=== PATIENT | male | born 1985 | race Caucasian/White ===

== ENCOUNTER → 2021-08-10 | Outpatient (CLI) | payer OTHER ==
[2021-08-10 09:43] LABS: BASO # 0.03 (0.02-0.10); EOS # 0.42 (0.04-0.40); EOS % 5.7 % (0.0-4.0); HEMATOCRIT 47.1 % (42.0-52.0); HEMOGLOBIN 15.8 g/dL (13.5-18.0); LYMPH# 2.48 (1.50-4.00); MEAN CELL VOLUME 93 fl (78-100); MEAN CORPUSCULAR HEMOGLOBIN 31 pg (27-31); MEAN CORPUSCULAR HGB CONC 34 g/dL (33-37); MEAN PLATELET VOLUME 9.4 fl (7.4-10.4); MONO # 0.69 (0.20-0.80); NEU # 3.73 (1.40-6.50); PLATELET COUNT 239 K/mm3 (130-400); RED BLOOD COUNT 5.06 M/mm3 (4.20-5.60); RED CELL DISTRIBUTION WIDTH 11.8 % (11.5-14.5); WHITE BLOOD COUNT 7.4 K/mm3 (4.8-10.8)
[2021-08-10 09:59] LABS: ALBUMIN 4.3 g/dL (3.5-5.0); POTASSIUM 4.9 mmol/L (3.5-5.1); SODIUM 139 mmol/L (136-145)
[2021-08-10 10:00] LABS: CALCIUM 9.4 mg/dL (8.3-10.5)
[2021-08-10 10:02] LABS: GLUCOSE 102 mg/dL (75-110); TOTAL PROTEIN 7.4 g/dL (6.4-8.3)
[2021-08-10 10:03] LABS: CARBON DIOXIDE 24 mmol/L (22-29)
[2021-08-10 10:04] LABS: TOTAL BILIRUBIN 0.6 mg/dL (0.2-1.2)
[2021-08-10 10:07] LABS: AST-SGOT 26 U/L (5-34)
[2021-08-10 10:08] LABS: ALT/SGPT 39 U/L (0-55)
== END ==
LOC: LAB 09:12
PROVIDERS: Family Medicine
DX: Z00.00 Encounter for general adult medical examination without abnormal findings (principal); E55.9 Vitamin D deficiency, unspecified; R53.83 Other fatigue; E78.5 Hyperlipidemia, unspecified